=== PATIENT | male | born 1955 | race Caucasian/White ===

== ENCOUNTER 2022-11-08 00:51 | Day surgery (SDC) | payer MEDICARE, SELFPAY ==
[2022-10-31 13:31] VITALS: BMI 32.4
[2022-11-08 09:11] VITALS: BP 148/96; PULSE 73; RESP 20; TEMP 36.6; O2SAT 100
[2022-11-08] MEDS: LACTATED RINGERS 1,000 ML 150 ML IV CONT (09:24)
--- NOTE | 2022-11-08 09:50 | PM.HPGS ---
History of Present Illness History of Present Illness Consent: Risks, benefits, and alternatives have been discussed and questions answered. Patient agrees to proceed with procedure. Chief complaint: hx colon polyps Narrative: Justin Corcoran is a 67 year old male Referred for colon cancer screening. About 6 years ago he had multiple adenomas removed. Review of Systems Review of Systems: All systems reviewed & are unremarkable except as noted in HPI and below PMFSH Social History Social History Smoking status: Never smoker Alcohol intake: current Alcohol use details: 3-4 drinks a year Substance use type: does not use Living arrangements: alone Spiritual care concerns: No Meds Home Medications and Allergies Home Medications Medication Instructions Recorded Confirmed Type polyethylene glycol 3350 17 17 g PO DAILY #238 grams 09/25/22 10/31/22 Rx gram/dose oral powder (Miralax) aspirin 81 mg chewable tablet 81 mg PO DAILY 10/31/22 10/31/22 History atorvastatin 80 mg tablet 80 mg PO DAILY 10/31/22 10/31/22 History clopidogrel 75 mg tablet (Plavix) 75 mg PO DAILY 10/31/22 10/31/22 History metoprolol succinate 25 mg 25 mg PO DAILY 10/31/22 10/31/22 History tablet,extended release 24 hr Allergies Allergy/AdvReac Type Severity Reaction Status Date / Time No Known Allergies Allergy Verified 11/08/22 09:09 Vital Signs Vital Signs - 24 hr 11/08/22 09:11 Temperature 36.6 C Pulse Rate 73 Respiratory Rate 20 Blood Pressure 148/96 H Pulse Oximetry 100 Oxygen Delivery Room Air Exam Resp: Auscultation: clear to auscultation bilaterally Cardio: Rate: regular rate Rhythm: regular rhythm GI: GI Palp: Yes Soft to palpation and No Tenderness to palpation present (GI) Assessment and Plan Assessment and plan (1) Colon cancer screening: Code(s): Z12.11 - Encounter for screening for malignant neoplasm of colon Status: Acute Assessment and Plan: Colonoscopy with possible biopsy or polypectomy or cautery or injection of substances.
--- NOTE | 2022-11-08 10:09 | P.PNAN_ITS ---
Anes - Initial Pre Proc Eval Procedure: Operation Date: 11/08/22 10:30 Proposed Procedures p Colonoscopy - Howard Red MD Date/Time: 11/08/22 10:09 Surgeon: Howard Red MD Pre Op Diagnosis: hx colon polyps Patient Data Age: 67 Gender: M Height: 1.85 m Weight: 107.3 kg Last Vital Signs Temp 98 F 11/08/22 09:11 Pulse 73 11/08/22 09:11 Resp 20 11/08/22 09:11 BP 148/96 H 11/08/22 09:11 Pulse Ox 100 11/08/22 09:11 O2 Del Method Room Air 11/08/22 09:11 Allergies Allergy/AdvReac Type Severity Reaction Status Date / Time No Known Allergies Allergy Verified 11/08/22 09:09 Home Medications Medication Instructions Recorded Confirmed Type polyethylene glycol 3350 17 17 g PO DAILY #238 grams 09/25/22 10/31/22 Rx gram/dose oral powder (Miralax) aspirin 81 mg chewable tablet 81 mg PO DAILY 10/31/22 10/31/22 History atorvastatin 80 mg tablet 80 mg PO DAILY 10/31/22 10/31/22 History clopidogrel 75 mg tablet (Plavix) 75 mg PO DAILY 10/31/22 10/31/22 History metoprolol succinate 25 mg 25 mg PO DAILY 10/31/22 10/31/22 History tablet,extended release 24 hr Patient hx anesthesia problems: none Family hx anesthesia problems: none Results Review: All pre-operative results and documents have been reviewed as part of the pre- operative evaluation. [facility] Social History Social History Smoking status: Never smoker Alcohol intake: current Alcohol use details: 3-4 drinks a year Substance use type: does not use Living arrangements: alone Spiritual care concerns: No Anes - Eval Final PreProcedure Day of Procedure 11/08/22 10:09 Patient weight: normal Heart: regular rate and rhythm Lungs: clear to auscultation Airway: Mallampati scale class II Neurological: alert and oriented Last oral intake: >/= 8 hours ASA classification: III Emergent: no Anesthetic plan: proceed Anesthesia type and monitoring: general GIVS and standard monitoring Results Review: All pre-operative results and documents have been reviewed as part of the pre- operative evaluation. Informed Consent: The patient's anesthetic plan and its attendant risks and benefits were discussed with the patient/family/POA. Questions were solicited and answers provided to the satisfaction of the patient/family/POA.
[2022-11-08 10:22] VITALS: BP 95/63; PULSE 65; RESP 20; O2SAT 95
--- NOTE | 2022-11-08 10:27 | ECG_ITS ---
Measurements Intervals [place] Rate: 60 P: 44 TN: 144 QRS: -9 QRSD: 95 T: 104 QT: 441 QTc: 444 Interpretive Statements SINUS RHYTHM WITH FREQUENT VENTRICULAR PREMATURE COMPLEXES POSSIBLE LEFT ATRIAL ENLARGEMENT [-0.1mV P WAVE IN V1/V2] NONSPECIFIC T-WAVE ABNORMALITY NO PREVIOUS ECG AVAILABLE FOR COMPARISON Electronically Signed On 11-08-2022 15:46:31 CDT by Mckenzie Rodgers M.D.
[2022-11-08 10:32] VITALS: BP 103/71; PULSE 64; RESP 20; O2SAT 100
[2022-11-08 10:42] VITALS: BP 126/84; PULSE 60; RESP 20; O2SAT 100
== END 2022-11-08 11:35 | disposition home or self-care (01) ==
PROVIDERS: PCP Internal Medicine; Visit Provider Internal Medicine Gastroenterology
PROC: 0DJD8ZZ Inspection of Lower Intestinal Tract, Via Natural or Artificial Opening Endoscopic (ICD-10-PCS; CPT 45378; principal; 2022-11-08 10:30)
DX: Z12.11 Encounter for screening for malignant neoplasm of colon (principal); K57.32 Diverticulitis of large intestine without perforation or abscess without bleeding; K63.89 Other specified diseases of intestine; Z86.010 Personal history of colon polyps; Z79.02 Long term (current) use of antithrombotics/antiplatelets; Z79.82 Long term (current) use of aspirin
CPT/HCPCS: 45380; 88305; 93005; J2704; J7120